=== PATIENT | male | born 1955 | race American Indian/Alaskan Native ===

== ENCOUNTER 2019-02-08 16:49 | Emergency (ER) | payer BC ==
[2019-02-08 17:05] VITALS: BP 134/70
--- NOTE | 2019-02-08 17:05 | Event Note ---
ED Screening Note Date of service: 02/08/19 Time: 17:02 ED Screening Note: This is a 63 y.o. M. that presents to the ER from PCP at [facility]. Patient instructed to f/u in ER because low H/H. This initial assessment/diagnostic orders/clinical plan/treatment(s) is/are subject to change based on patients health status, clinical progression and re- assessment by fellow clinical providers in the ED. Further treatment and workup at subsequent clinical providers discretion. Patient/guardian urged not to elope from the ED as their condition may be serious if not clinically assessed and managed. Initial orders include: Labs
== END 2019-02-08 18:05 | disposition left against medical advice (07) ==
LOC: ED 16:49
DX: Z01.812 Encounter for preprocedural laboratory examination (principal); Z53.21 Procedure and treatment not carried out due to patient leaving prior to being seen by health care provider

== ENCOUNTER 2022-02-27 20:44 | Emergency (ER) | payer BC ==
[2022-02-27] MEDS ORDERED: dexAMETHasone 20 MG/5 ML VIAL IM ONE (22:29)
[2022-02-27] MEDS ORDERED: KETOROLAC 30 MG/1 ML INJ IM ONE (22:29)
--- NOTE | 2022-02-27 22:56 | Emergency Department Report ---
ED Back Pain/Injury HPI - General Chief Complaint: Back Pain/Injury Stated Complaint: BACK SPASM Time Seen by Provider: 02/27/22 22:29 Source: patient Limitations: No Limitations - History of Present Illness Initial Comments: Patient 66-year-old male with history of hypertension and chronic back pain who presents for back pain. 11/26 radiating to bilateral lower extremities describes as low back spasms. This is acute on chronic problem for this patient. Patient denies new fall injury or trauma. There is been no loss or decrease in bowel or bladder function. Patient is amatory to baseline with walker. States he just flared up 2 days ago. Patient is followed by the [facility]. Pain is generally controlled with NSAIDs prescribed for same. Patient is a ccompanied by family member patient with no acute distress at this time denies numbness tingling or paralysis. MD Complaint: back pain - Related Data Previous Rx's Medication Instructions Recorded Last Taken Type Acetaminophen 1,000 mg PO Q6H PRN #30 cap 02/27/22 Unknown Rx Diclofenac 1% [Diclofenac 1% 1 applicatio TP QID PRN #1 tube 02/27/22 Unknown Rx topical gel] Allergies Allergy/AdvReac Type Severity Reaction Status Date / Time No Known Allergies Allergy Unverified 03/22/13 12:36 ED Review of Systems ROS: Stated complaint: BACK SPASM Other details as noted in HPI Constitutional: denies: chills, fever Eyes: denies: eye pain, eye discharge, vision change ENT: denies: ear pain, throat pain Respiratory: denies: cough, shortness of breath, wheezing Cardiovascular: denies: chest pain, palpitations Endocrine: no symptoms reported Gastrointestinal: denies: abdominal pain, nausea, diarrhea Genitourinary: denies: urgency, dysuria Musculoskeletal: back pain, arthralgia Skin: denies: rash, lesions Neurological: denies: headache, weakness, numbness, paresthesias, vertigo Psychiatric: denies: anxiety, depression Hematological/Lymphatic: as per HPI ED Past Medical Hx - Past Medical History Hx Hypertension: Yes - Surgical History Additional Surgical History: heart bypass surgery - Social History Smoking Status: Never Smoker Substance Use Type: Alcohol - Medications Home Medications: Home Medications Medication Instructions Recorded Confirmed Last Taken Type Acetaminophen 1,000 mg PO Q6H PRN #30 cap 02/27/22 Unknown Rx Diclofenac 1% [Diclofenac 1% 1 applicatio TP QID PRN #1 tube 02/27/22 Unknown Rx topical gel] ED Physical Exam - General Limitations: No Limitations General appearance: alert, in no apparent distress - Head Head exam: Present: normocephalic, normal inspection - Eye Eye exam: Present: EOMI Pupils: Present: normal accommodation - ENT ENT exam: Present: mucous membranes moist - Neck Neck exam: Present: normal inspection, full ROM. Absent: tenderness, meningismus, lymphadenopathy - Respiratory Respiratory exam: Present: normal lung sounds bilaterally. Absent: respiratory distress, wheezes - Cardiovascular Cardiovascular Exam: Present: regular rate, normal rhythm, normal heart sounds. Absent: systolic murmur, diastolic murmur, rubs, gallop - GI/Abdominal GI/Abdominal exam: Present: soft, normal bowel sounds. Absent: distended, tenderness - Rectal Rectal exam: Present: deferred - Extremities Exam Extremities exam: Present: normal inspection, full ROM, normal capillary refill - Back Exam Back exam: Present: muscle spasm. Absent: paraspinal tenderness, vertebral tenderness - Expanded Back Exam Expanded Back exam: Absent: saddle anesthesia Back exam: Positive Straight Leg Raise: Left, Right - Neurological Exam Neurological exam: Present: alert, oriented X3, CN II-XII intact, reflexes normal. Absent: motor sensory deficit - Expanded Neurological Exam Expanded Patient oriented to: Present: person, place, time Speech: Present: fluid speech Motor strength exam: RUE: 5, LUE: 5, RLE: 5, LLE: 5 Best Eye Response ([place]): (4) open spontaneously Best Motor Response ([place]): (6) obeys commands Best Verbal Response ([place]): (5) oriented [place] Total: 15 - Psychiatric Psychiatric exam: Present: normal affect, normal mood - Skin Skin exam: Present: warm, dry, intact, normal color. Absent: rash ED Course Vital Signs 02/27/22 02/27/22 21:07 22:46 Temperature 97.8 F Pulse Rate 71 Respiratory 18 16 Rate Blood Pressure 127/98 O2 Sat by Pulse 100 Oximetry ED Medical Decision Making - Medical Decision Making Plan DC to home with prescriptions, moist heat therapy back exercises [facility] 2 [facility]. Return to emergency department should symptoms worsen. Patient verbalized agreement understanding of discharge plan. Patient DC'd home in stable condition at this time. Critical care attestation.: If time is entered above; I have spent that time in minutes in the direct care of this critically ill patient, excluding procedure time. ED Disposition Clinical Impression: Low back strain Qualifiers: Encounter type: initial encounter Qualified Code(s): S39.012A - Strain of muscle, fascia and tendon of lower back, initial encounter Disposition: HOME / SELF CARE / HOMELESS Is pt being admited?: No Does the pt Need Aspirin: No Condition: Stable Instructions: Low Back Sprain or Strain Rehab-SportsMed Additional Instructions: Take medication as prescribed use moist heat therapy as directed. Back exercises as directed. Follow-up with your doctor in 1 to 2 days. Return to emergency department should symptoms worsen Prescriptions: Acetaminophen 1,000 mg PO Q6H PRN #30 cap PRN Reason: pain Diclofenac 1% [Diclofenac 1% topical gel] 1 applicatio TP QID PRN #1 tube PRN Reason: pain Referrals: [facility] [Outside] - 3-5 Days Time of Disposition: 23:02
[2022-02-27 23:13] VITALS: BP 132/88
== END 2022-02-27 23:21 | disposition home or self-care (01) ==
LOC: ED 20:44
DX: S39.012A Strain of muscle, fascia and tendon of lower back, initial encounter (principal); I10 Essential (primary) hypertension; X58.XXXA Exposure to other specified factors, initial encounter; Y93.89 Activity, other specified; Y92.89 Other specified places as the place of occurrence of the external cause; Y99.8 Other external cause status
CPT/HCPCS: 96372; 99282; J1100; J1885